=== PATIENT | male | born 1990 | race African-American/Black ===

== ENCOUNTER 2017-07-11 22:04 | Emergency (ER) | payer SELFPAY ==
[~2017-07-11] VITALS: Ht 193 cm; Wt 75.9 kg
[~2017-07-11 22:04] MED LIST: ALBUPOW9 PO; AMOX500C PO; PRED5TAB PO; Z.0.NO CURRENT MEDS
[2017-07-11 22:07] VITALS: BP 133/69; PULSE 59; RESP 16; TEMP 97.9; O2SAT 99
[2017-07-11 22:57] LABS: AUTOMATED NEUTROPHIL # 2.8 TH/MM3 (1.8-7.7); BASOPHIL # 0.2 TH/MM3 (0-0.2); BASOPHIL % 2.7 % (0.0-2.0); EOSINOPHIL # 0.2 TH/MM3 (0-0.4); HEMATOCRIT 46.3 % (39.0-51.0); HEMOGLOBIN 16.1 GM/DL (13.0-17.0); LYMPH % 36.6 % (9.0-44.0); LYMPHOCYTE # 2.1 TH/MM3 (1.0-4.8); MEAN CELL VOLUME 82.1 FL (80.0-100.0); MEAN CORPUSCULAR HEMOGLOBIN 28.5 PG (27.0-34.0); MEAN CORPUSCULAR HGB CONC 34.7 % (32.0-36.0); MEAN PLATELET VOLUME 9.6 FL (7.0-11.0); MONO % 6.8 % (0.0-8.0); MONOCYTE # 0.4 TH/MM3 (0-0.9); NEUT % 49.9 % (16.0-70.0); PLATELET COUNT 210 TH/MM3 (150-450); RED BLOOD COUNT 5.63 MIL/MM3 (4.50-5.90); RED CELL DISTRIBUTION WIDTH 14.6 % (11.6-17.2); WHITE BLOOD COUNT 5.6 TH/MM3 (4.0-11.0)
[2017-07-11 23:10] LABS: ALBUMIN 4.4 GM/DL (3.4-5.0); ALT (GPT) 23 U/L (12-78); AST (GOT) 22 U/L (15-37); BICARBONATE 27.1 MEQ/L (21.0-32.0); BLOOD UREA NITROGEN 10 MG/DL (7-18); CALCIUM 8.9 MG/DL (8.5-10.1); CHLORIDE 108 MEQ/L (98-107); CREATININE 1.28 MG/DL (0.60-1.30); GLOMERULAR FILTRATION RATE 82 ML/MIN (>89); GLUCOSE,RANDOM 97 MG/DL (74-106); LIPASE 158 U/L (73-393); SODIUM (NA) 140 MEQ/L (136-145)
[2017-07-11 23:13] LABS: ALKALINE PHOSPHATASE 73 U/L (45-117); TOTAL BILIRUBIN ADULT 1.3 MG/DL (0.2-1.0); TOTAL PROTEIN 7.9 GM/DL (6.4-8.2)
--- NOTE | 2017-07-12 00:01 | PD ---
HPI . Abdominal cramping Chief Complaint: GI Complaint Time Seen by Provider: 23:37 Travel History International Travel<30 days: No Contact w/Intl Traveler<30days: No Traveled to known affect area: No History of Present Illness HPI Patient presents with chief complaint of abdominal cramping associated with diarrhea. Onset was yesterday. Symptoms are very mild. He reports 2 episodes of diarrhea. No vomiting. No fever. No known sick contacts. No urinary tract symptoms. No modifying factors. PFSH Past Medical History Medical History: Denies Significant Hx Blood Disorders: No Cardiovascular Problems: No Genitourinary: No Immune Disorder: No Musculoskeletal: No Neurologic: No Psychiatric: No Reproductive: No Respiratory: No Tetanus Vaccination: Never Vaccinated Influenza Vaccination: No Past Surgical History Surgical History: No Previous Surgery Other Surgery: No Social History Alcohol Use: Yes Tobacco Use: Yes Substance Use: No Allergies-Medications (Allergen,Severity, Reaction): Coded Allergies: No Known Allergies (Verified , 02/14/13) Reported Meds & Prescriptions Reported Meds & Active Scripts Active No Active Prescriptions or Reported Medications Review of Systems Except as stated in HPI: all other systems reviewed are Neg General / Constitutional: No: Fever, Chills Gastrointestinal: Positive: Diarrhea, Abdominal Pain, No: Nausea, Vomiting Genitourinary: No: Urgency, Frequency, Dysuria Physical Exam Narrative GENERAL: Healthy-appearing young man in no distress. SKIN: warm/dry. Good color and turgor. HEAD: Normocephalic. Atraumatic. EYES: Pupils equal and round. No scleral icterus. No injection or drainage. ENT: No nasal bleeding or discharge. Mucous membranes pink and moist. NECK: Trachea midline. Full range of motion without pain.. CARDIOVASCULAR: Regular rate and rhythm. RESPIRATORY: No accessory muscle use. Clear to auscultation. Breath sounds equal bilaterally. GASTROINTESTINAL: Abdomen soft. Nontender. Bowel sounds present. Nondistended. MUSCULOSKELETAL: No obvious deformities. NEUROLOGICAL: Awake and alert. No obvious cranial nerve deficits. Motor grossly within normal limits. Normal speech. PSYCHIATRIC: Appropriate mood and affect; insight and judgment normal. Data Data Last Documented VS Vital Signs Date Time Temp Pulse Resp B/P (MAP) Pulse Ox O2 Delivery O2 Flow Rate FiO2 07/11/17 23:58 07/11/17 22:07 97.9 59 16 99 Room Air Orders Orders Complete Blood Count With Diff (07/11/17 22:13) Comprehensive Metabolic Panel (07/11/17 22:13) Lipase (07/11/17 22:13) Ed Discharge Order (07/11/17 23:58) Labs Laboratory Tests Test 07/11/17 22:35 White Blood Count 5.6 TH/MM3 Red Blood Count 5.63 MIL/MM3 Hemoglobin 16.1 GM/DL Hematocrit 46.3 % Mean Corpuscular Volume 82.1 FL Mean Corpuscular Hemoglobin 28.5 PG Mean Corpuscular Hemoglobin Concent 34.7 % Red Cell Distribution Width 14.6 % Platelet Count 210 TH/MM3 Mean Platelet Volume 9.6 FL Neutrophils (%) (Auto) 49.9 % Lymphocytes (%) (Auto) 36.6 % Monocytes (%) (Auto) 6.8 % Eosinophils (%) (Auto) 4.0 % Basophils (%) (Auto) 2.7 % Neutrophils # (Auto) 2.8 TH/MM3 Lymphocytes # (Auto) 2.1 TH/MM3 Monocytes # (Auto) 0.4 TH/MM3 Eosinophils # (Auto) 0.2 TH/MM3 Basophils # (Auto) 0.2 TH/MM3 CBC Comment DIFF FINAL Differential Comment Blood Urea Nitrogen 10 MG/DL Creatinine 1.28 MG/DL Random Glucose 97 MG/DL Total Protein 7.9 GM/DL Albumin 4.4 GM/DL Calcium Level 8.9 MG/DL Alkaline Phosphatase 73 U/L Aspartate Amino Transf (AST/SGOT) 22 U/L Alanine Aminotransferase (ALT/SGPT) 23 U/L Total Bilirubin 1.3 MG/DL Sodium Level 140 MEQ/L Potassium Level 3.8 MEQ/L Chloride Level 108 MEQ/L Carbon Dioxide Level 27.1 MEQ/L Anion Gap 5 MEQ/L Estimat Glomerular Filtration Rate 82 ML/MIN Lipase 158 U/L [facility] Medical Decision Making Medical Screen Exam Complete: Yes Emergency Medical Condition: Yes Differential Diagnosis Differential diagnosis of abdominal pain includes but is not limited to gastritis, pancreatitis, hepatitis, gastroenteritis, gallbladder disease, constipation, urinary retention, UTI, peptic ulcer disease, diverticulitis or appendicitis Narrative Course Patient presents complaining with crampy abdominal pain associated with 2 episodes of diarrhea. He has a benign exam. CBC & BMP Diagram 07/11/17 22:35 Total Protein 7.9, Albumin 4.4, Calcium Level 8.9, Alkaline Phosphatase 73, Aspartate Amino Transf (AST/SGOT) 22, Alanine Aminotransferase (ALT/SGPT) 23, Total Bilirubin 1.3 H The history, exam, diagnostic testing, and current condition do not suggest any significant pathology to warrant further testing, continued ED treatment, admission, or surgical evaluation at this point. No EMC was found. The patient 's condition is stable and appropriate for discharge. Diagnosis Primary Impression: Diarrhea Qualified Codes: R19.7 - Diarrhea, unspecified Additional Impression: Abdominal pain Qualified Codes: R10.84 - Generalized abdominal pain Patient Instructions: General Instructions, Abdominal Pain (ED) Departure Forms: Tests/Procedures Additional Instructions: You may use Pepto-Bismol as needed for diarrhea and abdominal cramping. Drink lots of fluids. Scripts No Active Prescriptions or Reported Meds Disposition: 01 DISCHARGE HOME Condition: Stable Chiquita Vaughan MD Jul 12, 2017 00:01
== END 2017-07-12 00:05 | disposition home or self-care (01) ==
LOC: NEPC 22:04
DX: R19.7 Diarrhea, unspecified (principal); R10.84 Generalized abdominal pain
CPT/HCPCS: 80053; 83690; 85025; 99283